=== PATIENT | male | born 1985 | race Caucasian/White ===

== ENCOUNTER 2023-03-20 05:20 | Emergency (ER) | payer MEDICAID ==
[2023-03-20 05:25] VITALS: BP_SYST 122; PULSE 105; RESP 15; TEMP 98.7; O2SAT 94
--- NOTE | 2023-03-20 05:26 | NUR ---
Patient to ER bed 5 to gown for evaluation. Side rails up. Report given to HERMAN SIMON.
--- NOTE | 2023-03-20 05:27 | NUR ---
JAKE MURPHY AT BEDSIDE EVALUATING PATIENT
[2023-03-20] MEDS ORDERED: NALOXONE HCL 2 MG/2 ML SYR (NARCAN) IM ONE (05:45)
--- NOTE | 2023-03-20 05:45 | NUR ---
Pt recvieved from EMS, asleep. Per EMS VSS. VS done WNL. FR IV 18G to Lt AC- site secured w/ occlusive dsg and coban. Straight cath attempted, Pt was dry- no urine output. Pt more awake, Able to state his name Jhonny Cassidy, 85, Mothers' name Karyna and gave her phone # [phone]. Info shared with ER admitting and colleagues
[2023-03-20] MEDS ORDERED: NACL 0.9% 1,000 ML IV ONE ×2 (06:15→07:15)
[2023-03-20] MEDS ORDERED: ONDANSETRON HCL 4 MG/2 ML VIAL IVP ONE (06:30)
[2023-03-20 06:31] LABS: BASOPHILS % (AUTO) 0.6 % (0.0-2.0); EOSINOPHILS # (AUTO) 0.3 K/uL (0.0-0.4); EOSINOPHILS % (AUTO) 3.9 % (0.0-4.0); HEMATOCRIT 35.7 % (36-54); HEMOGLOBIN 11.3 g/dL (14.0-18.0); LYMPHOCYTES # (AUTO) 1.1 K/uL (1.0-5.5); LYMPHOCYTES % (AUTO) 16.9 % (20.5-51.5); MEAN CORPUSCULAR HEMOGLOBIN 29 pg (27-31); MEAN CORPUSCULAR HGB CONC 32 % (32-36); MEAN CORPUSCULAR VOLUME 90 fL (79.0-98.0); MONOCYTES # (AUTO) 0.4 K/uL (0.0-1.0); MONOCYTES % (AUTO) 6.9 % (1.7-9.3); NEUTROPHILS # (AUTO) 4.7 K/uL (1.8-7.7); NEUTROPHILS % (AUTO) 71.7 % (40.0-70.0); PLATELET COUNT (AUTO) 295 K/uL (130-430); RED BLOOD CELL COUNT(AUTO) 3.98 MIL/uL (4.2-6.2); RED CELL DISTRIBUTION WIDTH 15.3 % (9.0-15.0); WHITE BLOOD COUNT (AUTO) 6.5 K/uL (4.8-10.8)
[2023-03-20 06:47] LABS: CALCIUM 7.9 mg/dL (8.4-11.0); CREATININE 1.02 mg/dL (0.55-1.30)
[2023-03-20 06:59] LABS: BARBITURATE, URINE NEGATIVE (NEG <=200); BENZODIAZEPINE, URINE NEGATIVE (NEG <=150); CANNABINOID, URINE POSITIVE (NEG <=50); COCAINE, URINE NEGATIVE (NEG <=150); METHAMPHETAMINES SCREEN,URINE POSITIVE (NEG <=500); OPIATE, URINE NEGATIVE (NEG <=100); PHENCYCLIDINE SCREEN,URINE NEGATIVE (NEG <=25); URINE AMPHETAMINE POSITIVE (NEG <=500); URINE METHADONE NEGATIVE (NEG <=200); URINE OXYCODONE SCREEN NEGATIVE (NEG <=100); URINE PROPOXYPHENE SCREEN NEGATIVE (NEG <=300)
[2023-03-20 07:00] LABS: UR TRICYCLIC ANTIDEPRESSANTS NEGATIVE (NEG <=300)
[2023-03-20 07:01] LABS: ALBUMIN 3.3 g/dL (3.4-4.8); TOTAL BILIRUBIN 0.2 mg/dL (0.0-1.0)
--- NOTE | 2023-03-20 07:05 | NUR ---
Report to AM shift HERMAN Turpin. Pt asleep no noted s/s of distress or SOB.
--- NOTE | 2023-03-20 07:16 | NUR ---
PT WITH EYES CLOSED, IN NAD. RESP EVEN AND UNLABORED, ONN RA @98%.
[2023-03-20] MEDS ORDERED: NALO4SPR NS (09:55)
--- NOTE | 2023-03-20 11:16 | NUR ---
PT AWAKENED WITH TACTILE STIMULATION, OFFERED FLUIDS AND FOOD, PT REFUSED AND WENT BACK TO SLEEP. VSS.
--- NOTE | 2023-03-20 13:02 | NUR ---
NO ACUTE CHANGES IN CONDITION, PT WITH EYES CLOSED, IN NAD. VSS
--- NOTE | 2023-03-20 13:44 | NUR ---
PT WOKE UP AND STARTED GETTING DRESSED. ALL BELINGINGS WITH PT. VSS. IV SL DC'D. DC PAPEROWRK GIVEN.
[2023-03-20 13:45] VITALS: BP_SYST 115; PULSE 70; RESP 15; TEMP 98; O2SAT 96
== END 2023-03-20 13:44 | disposition home or self-care (01) ==
LOC: EDBD 05:20 → SED 05:20
DX: T40.411A Poisoning by fentanyl or fentanyl analogs, accidental (unintentional), initial encounter (principal); F15.10 Other stimulant abuse, uncomplicated; F12.10 Cannabis abuse, uncomplicated; E86.0 Dehydration; Z79.899 Other long term (current) drug therapy; Y92.89 Other specified places as the place of occurrence of the external cause
CPT/HCPCS: 99285; 96374; 96361; 96375; 80307; 80053; 85025; 36415; J2405; J7040; J7030